=== PATIENT | female | born 1935 | race Two or more races ===

== ENCOUNTER 2024-08-07 06:20 | Outpatient (RCR) | payer MEDICARE, BC, OTHER, SELFPAY | END 2024-08-07 23:59 | disposition home or self-care (01) | LOC: RPT 06:20 | PROVIDERS: ATTENDING PHYSICIAN Emergency Medicine | DX: M51.04 Intervertebral disc disorders with myelopathy, thoracic region (principal); R26.89 Other abnormalities of gait and mobility; G89.29 Other chronic pain; Z73.6 Limitation of activities due to disability | CPT/HCPCS: 97010; 97110; 97112; 97162 ==